=== PATIENT | male | born 1965 | race African-American/Black ===

== ENCOUNTER 2021-04-11 08:55 | Outpatient (CLI) | payer MEDICARE | END 2021-04-11 08:56 | disposition home or self-care (01) | LOC: CSHWCC 08:55 | PROVIDERS: ATTEND Nurse Practitioner Family | DX: L97.422 Non-pressure chronic ulcer of left heel and midfoot with fat layer exposed (principal); I10 Essential (primary) hypertension; I48.20 Chronic atrial fibrillation, unspecified; I87.2 Venous insufficiency (chronic) (peripheral); J44.9 Chronic obstructive pulmonary disease, unspecified; M06.9 Rheumatoid arthritis, unspecified; M17.9 Osteoarthritis of knee, unspecified; R60.9 Edema, unspecified | CPT/HCPCS: 97139; G0463; 99213 ==

== ENCOUNTER 2021-04-18 08:36 | Outpatient (CLI) | payer MEDICARE | END 2021-04-18 08:37 | disposition home or self-care (01) | LOC: CSHWCC 08:36 | PROVIDERS: ATTEND Nurse Practitioner Family | DX: L97.422 Non-pressure chronic ulcer of left heel and midfoot with fat layer exposed (principal); I10 Essential (primary) hypertension; I48.20 Chronic atrial fibrillation, unspecified; I87.2 Venous insufficiency (chronic) (peripheral); J44.9 Chronic obstructive pulmonary disease, unspecified; M06.9 Rheumatoid arthritis, unspecified; M17.9 Osteoarthritis of knee, unspecified; R60.9 Edema, unspecified ==

== ENCOUNTER 2021-04-25 10:44 | Outpatient (CLI) | payer MEDICARE | END 2021-04-25 10:45 | disposition home or self-care (01) | LOC: CSHWCC 10:44 | PROVIDERS: ATTEND Nurse Practitioner Family | DX: I87.2 Venous insufficiency (chronic) (peripheral) (principal); L97.422 Non-pressure chronic ulcer of left heel and midfoot with fat layer exposed; R60.9 Edema, unspecified; M17.9 Osteoarthritis of knee, unspecified; J44.9 Chronic obstructive pulmonary disease, unspecified; I48.20 Chronic atrial fibrillation, unspecified; M06.9 Rheumatoid arthritis, unspecified; I10 Essential (primary) hypertension | CPT/HCPCS: 97607 ==